=== PATIENT | female | born 1990 | race African-American/Black ===

== ENCOUNTER 2016-10-17 14:59 | Emergency (ER) | payer MEDICAID ==
[~2016-10-17] VITALS: Ht 157.5 cm; Wt 80.0 kg
[~2016-10-17 14:59] MED LIST: LISI-360 PO
[2016-10-17 15:04] VITALS: BP 169/108; PULSE 99; RESP 15; TEMP 98.1; O2SAT 97
[2016-10-17] MEDS ORDERED: AMLO5TAB2 PO (15:12)
--- NOTE | 2016-10-17 15:20 | PD ---
HPI Chief Complaint: Hypertension Time Seen by Provider: 15:19 Travel History International Travel<30 days: No Contact w/Intl Traveler<30days: No Traveled to known affect area: No History of Present Illness HPI 18-year-old female with PMH of hypertension presents to the ED for evaluation of elevated blood pressure readings. Patient states that throughout the course of the day she's been feeling "a little off." She states that she took her blood pressure readings which were 171/110, one 169/99 and 160/101. She denies headache, vision changes, chest pain, palpitations, shortness of breath, abdominal pain, nausea, vomiting, dysuria, hematuria, numbness, tingling, weakness of the extremities, difficulties with word finding, facial droop. She endorses compliance with 5 mg amlodipine daily. She denies risk of , states that she uses the Depo-Provera shot and her had a vasectomy. PFSH Past Medical History Cancer: No Cardiovascular Problems: No Diabetes: No Diminished Hearing: No Hepatitis: No Hiatal Hernia: No Hypertension: Yes Medical other: No Respiratory: No Thyroid Disease: No Tetanus Vaccination: < 5 Years ?: Not Menopausal: No Past Surgical History Other Surgery: Yes (BREAST REDUCTION) Social History Alcohol Use: No Tobacco Use: No Substance Use: No Allergies-Medications (Allergen,Severity, Reaction): Coded Allergies: No Known Allergies (Verified , 10/17/16) Reported Meds & Prescriptions Reported Meds & Active Scripts Active Reported Amlodipine (Amlodipine Besylate) 5 Mg Tab 5 Mg PO DAILY Review of Systems Except as stated in HPI: all other systems reviewed are Neg Physical Exam Narrative GENERAL: Well-nourished, well-developed black female in no acute distress. SKIN: Warm and dry. HEAD: Normocephalic. Atraumatic. EYES: No scleral icterus. No injection or drainage. PERRLA. EOMI. ENT: Pearly castaneda tympanic membranes bilaterally. Nasal mucosa is moist. Oropharynx without erythema, edema or exudate. NECK: Supple, trachea midline. No JVD or lymphadenopathy. CARDIOVASCULAR: Regular rate and rhythm without murmurs, gallops, or rubs. No carotid bruits. 2+ DP and radial pulses bilaterally. RESPIRATORY: Breath sounds clear and equal bilaterally. No accessory muscle use. GASTROINTESTINAL: Abdomen soft, non-tender, nondistended. + Bowel sounds MUSCULOSKELETAL: No cyanosis, or edema. The patient is ambulatory, moves extremities spontaneously. NEUROLOGICAL: Awake and alert. Cranial nerves II through XII intact. No pronator drift. Motor and sensory grossly within normal limits. Five out of 5 muscle strength in all muscle groups. Normal speech. BACK: Nontender without obvious deformity. No CVA tenderness. Data Data Last Documented VS Vital Signs Date Time Temp Pulse Resp B/P Pulse Ox O2 Delivery O2 Flow Rate FiO2 10/17/16 15:38 78 18 141/92 99 10/17/16 15:04 98.1 [facility] Medical Decision Making Medical Screen Exam Complete: Yes Emergency Medical Condition: Yes Differential Diagnosis Chronic hypertension versus hypertensive urgency versus hypertensive emergency versus other Narrative Course 18-year-old female with PMH of hypertension presents to the ED for evaluation of elevated blood pressure readings. Patient did BP readings today with findings of 171/110, 169/99 and 160/101. She denies headache, vision changes, chest pain, palpitations, shortness of breath, abdominal pain, nausea, vomiting , dysuria, hematuria, numbness, tingling, weakness of the extremities, difficulties with word finding, facial droop. She endorses compliance with 5 mg amlodipine daily. She denies risk of , states that she uses the Depo-Provera shot and her had a vasectomy. Vitals reviewed. BP 169/ 108 on presentation, 141/92 on recheck. Physical exam reveals a nontoxic- appearing black female in no acute distress. I have low suspicion of hypertensive emergency. However, I offered the patient laboratory evaluation, CT of the brain to evaluate for end organ damage. Patient declines at this time. I discussed the patient with Dr. Randhawa. She agrees that this is NOT hypertensive emergency. Patient was reassured, instructed to continue monitoring blood pressure, follow up with her primary care provider this week. She indicated understanding of the instructions. She is agreeable with the plan of care. She is stable and discharged home. Diagnosis Primary Impression: Chronic hypertension Referrals: Primary Care Physician Patient Instructions: Chronic Hypertension (ED), General Instructions Additional Instructions: Rest, hydrate. Avoid known stressors as possible. Continue to record your blood pressures, present to your primary care provider at the next visit. Follow up with your primary care provider this week. Return to the ED for any urgent or emergent medical condition. Disposition: 01 DISCHARGE HOME Condition: Stable Davey,Nallely PA Oct 17, 2016 15:20
[2016-10-17 15:38] VITALS: BP 141/92; PULSE 78; RESP 18; O2SAT 99
== END 2016-10-17 15:53 | disposition home or self-care (01) ==
LOC: NETRI 14:59
DX: I10 Essential (primary) hypertension (principal)
CPT/HCPCS: 99283